=== PATIENT | male | born 1990 | race Two or more races ===

== ENCOUNTER 2021-04-01 20:02 | Emergency (ER) | payer SELFPAY ==
[~2021-04-01] VITALS: Ht 175.3 cm; Wt 72.0 kg
[2021-04-01 21:30] VITALS: BP 123/78
== END 2021-04-01 21:40 | disposition home or self-care (01) | DRG 605 ==
LOC: ED 20:02
DX: S40.011A Contusion of right shoulder, initial encounter (principal); V48.6XXA Car passenger injured in noncollision transport accident in traffic accident, initial encounter